=== PATIENT | female | born 1945 | race Caucasian/White ===

== ENCOUNTER 2018-07-23 14:19 | Outpatient (CLI) | payer MEDICARE | END 2018-07-23 14:20 | disposition short-term general hospital (02) | LOC: EMS 14:19 | PROVIDERS: ATTEND Surgery | DX: R07.9 Chest pain, unspecified (principal); R68.84 Jaw pain | CPT/HCPCS: A0425; A0427 ==

== ENCOUNTER 2019-04-07 14:45 | Outpatient (CLI) | payer MEDICARE | END 2019-04-07 14:46 | disposition critical access hospital (66) | LOC: EMS 14:45 | PROVIDERS: ATTEND Surgery | DX: M54.5 Low back pain (principal); W10.9XXA Fall (on) (from) unspecified stairs and steps, initial encounter; Y92.009 Unspecified place in unspecified non-institutional (private) residence as the place of occurrence of the external cause | CPT/HCPCS: A0425; A0429 ==

== ENCOUNTER 2019-04-07 15:27 | Emergency (ER) | payer MEDICARE ==
[2019-04-07] MEDS ORDERED: IBUPROFEN 600 MG TABLET PO STA (15:49)
[2019-04-07] MEDS ORDERED: HYDROcod/ACETAM 5/325 MG TABLET PO STA (15:49)
--- NOTE | 2019-04-07 16:39 | CT Report ---
Reason: fall/pain Procedure Date: 04/07/2019 Accession Number: [id number] / [id number] Procedure: CT - Abdomen/Pelvis WO CPT Code: Final Report FULL RESULT: EXAM: CT ABDOMEN AND PELVIS (CT KUB) EXAM DATE: 04/07/2019 04:17 PM. CLINICAL HISTORY: Fall/pain. Fall onto back. Right low back pain. Right hip pain. COMPARISONS: None. TECHNIQUE: Routine axial helical CT imaging was performed through the abdomen and pelvis without IV contrast. Reconstructions: Coronal and sagittal. In accordance with CT protocol optimization, one or more of the following dose reduction techniques were utilized for this exam: automated exposure control, adjustment of mA and/or KV based on patient size, or use of iterative reconstructive technique. FINDINGS: Lung bases: No acute findings. 4 mm left lower lobe pulmonary nodule. Liver: Unremarkable. Gallbladder: Unremarkable. Bile ducts: Unremarkable. Pancreas: Moderate pancreatic lipomatosis. Spleen: Unremarkable. Adrenals: Unremarkable. 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 No renal calculi. No hydronephrosis or hydroureter. No ureteral calculi. Bowel: No dilated bowel loops are seen. Mild descending and sigmoid colon diverticulosis. No dilated bowel loops are seen. No acute bowel findings are seen. Medially located cecum. The appendix is seen, and there is no evidence for acute appendicitis. No free fluid or free air. Pelvis: The bladder and remaining pelvic organs appear unremarkable. Vasculature: No acute findings are seen. L2 and T9 vertebral body osseous hemangiomas. Mild to moderate acute compression fracture at T12 with anterior cortex buckling and the fracture involving the inferior endplate, appears to involve the anterior and middle columns without posterior protrusion of bone. No definite fracture line is seen extending to the posterior cortex. Evaluation is limited without IV contrast. IMPRESSION: 1. Mild to moderate acute compression fracture at T12. See above. No other acute fractures are seen. 2. No evidence for solid organ injury. No free fluid. 3. Small left renal angiomyolipoma. 4. Left lower lobe 4 mm pulmonary nodule. If there is low risk for malignancy, then no followup is warranted. If there is high risk for malignancy, recommend a 1-year follow-up chest CT. 5. Mild left-sided colonic diverticulosis. 6. See above. RADIA
--- NOTE | 2019-04-07 18:16 | ED Physician Documentation ---
History of Present Illness - Stated complaint Stated Complaint: GLF - Chief complaint Chief Complaint: Trauma Ch/Bk - History obtained from History obtained from: Patient - History of Present Illness Timing: Prior to arrival - Additonal information Additional information: Patient states she was coming down the stairs from her attic when she slipped on the last 2 stairs and fell. She states she struck her back and that she has been having pain in the sacral area and in her right flank since. Patient denies being able to urinate on the toilet since, as she states she was incontinent of urine when she landed. Patient states that she did not hit her head or lose consciousness. No neck pain. The patient states that she has not had any rib pain or abdominal pain. She denies any difficulty breathing. She states that she could not get herself up because her back hurt too badly. Patient denies any numbness or tingling in her lower extremities. No other complaints at this time. Review of Systems Ten Systems: 10 systems reviewed and negative Constitutional: reports: Reviewed and negative Eyes: reports: Reviewed and negative Ears: reports: Reviewed and negative Nose: reports: Reviewed and negative Throat: reports: Reviewed and negative Cardiac: reports: Reviewed and negative Respiratory: reports: Reviewed and negative GI: reports: Reviewed and negative : reports: Reviewed and negative Skin: reports: Reviewed and negative Musculoskeletal: reports: Back pain Neurologic: reports: Reviewed and negative Psychiatric: reports: Reviewed and negative Endocrine: reports: Reviewed and negative Immunocompromised: reports: Reviewed and negative PD PAST MEDICAL HISTORY - Past Medical History Past Medical History: No - Present Medications Home Medications: Ambulatory Orders Medication Instructions Recorded Confirmed Hydrocodone/Acetaminophen 1 - 2 each PO Q6H PRN #14 tablet 04/07/19 [Hydrocodon-Acetaminophen 5-325] - Allergies Allergies/Adverse Reactions: Allergies Allergy/AdvReac Type Severity Reaction Status Date / Time No Known Drug Allergies Allergy Verified 04/07/19 15:39 - Social History Does the pt smoke?: No Smoking Status: Never smoker Does the pt drink ETOH?: Yes Does the pt have substance abuse?: No - POLST Patient has POLST: No PD ED PE NORMAL - Vitals Vital signs reviewed: Yes - General General: Alert and oriented X 3, No acute distress, Other (Patient appears uncomfortable with movement.) - HEENT HEENT: PERRL - Neck Neck: Supple, no meningeal sign - Cardiac Cardiac: RRR, No murmur, Strong equal pulses - Respiratory Respiratory: No respiratory distress, Clear bilaterally - Abdomen Abdomen: Soft, Non tender, Non distended - Back Back: No CVA TTP, Other (No tenderness to palpation over the patient's spine at any level. No step-off.) - Derm Derm: Warm and dry - Extremities Extremities: No deformity - Neuro Neuro: Alert and oriented X 3, refuse driver 2-12 intact, No motor deficit, No sensory deficit, Normal speech - Psych Psych: Normal mood, Normal affect Results - Vitals Vitals: Vital Signs - 24 hr 04/07/19 04/07/19 04/07/19 15:35 15:52 18:22 Temperature 36.4 C L 36.8 C Heart Rate 80 81 96 Respiratory 16 16 18 Rate Blood Pressure 107/59 L 103/65 150/70 H O2 Saturation 97 98 96 Oxygen O2 Source Room air - Rads (name of study) CT abdomen and pelvis Radiology: Final report received, Discussed with rads, See rad report (Radiologist impression: 1. Mild to moderate acute compression fracture T12; no other acute fractures are seen.5. Mild left-sided colonic diverticulosis.) PD MEDICAL DECISION MAKING - ED course Complexity details: reviewed old records, reviewed results, re-evaluated patient, considered differential, d/w patient ED course: Patient was treated symptomatically with oral pain medication in the emergency department, and worked up with CT of the abdomen and pelvis without contrast. This did show a compression fracture of her T12 vertebra.The patient was found to be feeling better after receiving Vicodin in the emergency department.I discussed the findings of her CT with her, as well as the expected course of recovery. We have discussed that this is a stable fracture and would not be expected to result in any spinal cord compromise. We have discussed activity limitations at home, as well as the need for keeping moving. I have also discussed with her that a pulmonary nodule was found on her CT scan, and that this should be followed up by her primary care physician with repeat imaging in the next 6 months to year Departure - Departure Disposition: Home, Self Care Clinical Impression: Compression fracture Condition: Fair Instructions: ED Fx Comp Vertebral Prescriptions: Hydrocodone/Acetaminophen [Hydrocodon-Acetaminophen 5-325] 1 - 2 each PO Q6H PRN #14 tablet PRN Reason: pain Comments: Your x-ray showed a compression fracture of your T12 vertebra. This is right in the area that you seem to be feeling pain. Fortunately, a compression fracture is stable, and there is no concern for spinal cord injury.Until this heals, you will most likely have some degree of pain in your back, though it will improve over the next several weeks. Please take the pain medication as needed. Please follow-up with your primary care physician for further management. Discharge Date/Time: 04/07/19 18:40
[2019-04-07 18:22] VITALS: BP 150/70
== END 2019-04-07 18:40 | disposition home or self-care (01) ==
LOC: EDUNIT# → ED 15:27
DX: S22.089A Unspecified fracture of T11-T12 vertebra, initial encounter for closed fracture (principal); W10.8XXA Fall (on) (from) other stairs and steps, initial encounter; Y93.89 Activity, other specified; Y92.008 Other place in unspecified non-institutional (private) residence as the place of occurrence of the external cause; R91.8 Other nonspecific abnormal finding of lung field
CPT/HCPCS: 74176; 99284; A9270

== ENCOUNTER 2019-04-09 16:36 | Emergency (ER) | payer MEDICARE ==
--- NOTE | 2019-04-09 16:59 | ED Physician Documentation ---
PD HPI BACK PAIN - Stated complaint Stated Complaint: ED FOLLOW UP - COMPRESSION FRACTURE - Chief complaint Chief Complaint: Back Pain - History obtained from History obtained from: Patient - History of Present Illness Timing - onset: How many days ago (2) Timing - duration: Days (2) Timing - details: Abrupt onset, Still present Location: Lower Quality: Pain, Sharp, Aching Associated symptoms: No: Fever, Weakness, Numbness, Incontinent of urine Worsened by: Movement, Other (movement of getting up and down is worst, with pain also while standing. Has been in bed mostly the past couple days since injury.) Similar symptoms before: Has not had sx before Recently seen: Emergency Dept (2 days ago after fall backward with Dx of T12 mild endplate compression fracture.) Review of Systems Cardiac: denies: Chest pain / pressure Respiratory: denies: Dyspnea GI: denies: Abdominal Pain, Nausea, Vomiting, Diarrhea Skin: denies: Abrasion (s), Laceration (s) Neurologic: denies: Generalized weakness, Focal weakness, Numbness, Near syncope, Altered mental status, Headache PD PAST MEDICAL HISTORY - Past Medical History Past Medical History: No Neuro: None - Present Medications Home Medications: Ambulatory Orders Medication Instructions Recorded Confirmed Hydrocodone/Acetaminophen 1 - 2 each PO Q6H PRN #14 tablet 04/07/19 [Hydrocodon-Acetaminophen 5-325] Calcitonin [Fortical] 1 sprays MARK DAILY #1 bottle 04/09/19 Docusate Sodium 100 mg PO DAILY #30 capsule 04/09/19 Meloxicam [Mobic] 7.5 mg PO BID PRN #40 tablet 04/09/19 Ondansetron Odt [Zofran] 4 mg TL Q6H PRN #20 tablet 04/09/19 Oxycodone HCl 5 mg PO Q6H PRN #25 tablet 04/09/19 - Allergies Allergies/Adverse Reactions: Allergies Allergy/AdvReac Type Severity Reaction Status Date / Time No Known Drug Allergies Allergy Verified 04/09/19 16:47 - Living Situation Living Situation: reports: With spouse/s.o. Living Arrangement: reports: At home - Social History Does the pt smoke?: No Smoking Status: Never smoker Does the pt drink ETOH?: Yes Does the pt have substance abuse?: No - POLST Patient has POLST: No PD ED PE NORMAL - Vitals Vital signs reviewed: Yes - General General: Alert and oriented X 3, Well developed/nourished, Other (appears in pain for sitting up movement. Rolls to left side easily enough. ) - HEENT HEENT: Atraumatic - Neck Neck: Supple, no meningeal sign, No bony TTP, No adenopathy - Abdomen Abdomen: Soft, Non tender. No: Normal bowel sounds (diminished) - Female Female : Deferred - Rectal Rectal: Deferred - Back Back: No CVA TTP, Other (tender at TL area of back. No sores/rash) - Derm Derm: Normal color, Warm and dry - Neuro Neuro: Alert and oriented X 3, No motor deficit, No sensory deficit, Normal speech, Other (normal knee reflexes. ) Results - Vitals Vitals: Vital Signs - 24 hr 04/09/19 04/09/19 16:47 18:02 Temperature 37 C 37.0 C Heart Rate 77 81 Respiratory 18 16 Rate Blood Pressure 132/77 H 139/67 H O2 Saturation 100 95 Oxygen O2 Source Room air PD MEDICAL DECISION MAKING - ED course Complexity details: reviewed old records, re-evaluated patient (feeling much improved with IM Toradol and 1 mg Dilaudid. Still hurting ROM but able to sit up on her own. Walked to bathroom. ), considered differential (pain not well controlled with hydrocodone Rx. Can try Oxycodone and also NSAIDs, Calcitonin, and add Docusate to avert constipation. ), d/w patient Departure - Departure Disposition: 01 Home, Self Care Clinical Impression: Vertebral compression fracture Qualifiers: Encounter type: subsequent encounter Fracture of vertebra location: thoracic Thoracic vertebra fracture level: T12 Condition: Stable Record reviewed to determine appropriate education?: Yes Instructions: ED Fx Comp Vertebral Follow-Up: KATYA MATA MD [Primary Care Provider] - Prescriptions: Calcitonin [Fortical] 1 sprays MARK DAILY #1 bottle Docusate Sodium 100 mg PO DAILY #30 capsule Meloxicam [Mobic] 7.5 mg PO BID PRN #40 tablet PRN Reason: Pain Ondansetron Odt [Zofran] 4 mg TL Q6H PRN #20 tablet PRN Reason: Nausea / Vomiting Oxycodone HCl 5 mg PO Q6H PRN #25 tablet PRN Reason: Pain Comments: Use your walking sticks to help support your balance and back. Activity and position as most comfortable. Try to be up and around a few times a day to promote good circulation and aeration of the lungs. Purposeful deep breathing several times a day for good aeration of the lungs. Do some foot moving exercises up and down when you are resting in bed several times a day to maintain good blood flow through the calves. Daily stool softener of docusate for the next month to ensure easy bowel movements. Stay well-hydrated. Good high-fiber diet. Use an anti-inflammatory regularly. I wrote for Mobic twice daily for the next 2 to 3 weeks. Take it with food so it does not bother your stomach. Also use Tylenol 500 mg 4 times daily for the next 7-10 days. Use the oxycodone 5 mg tablets 1 to 1-1/2 tablets every 6 hours if needed for pain. Follow-up with your primary care in the next week to see if any medication adjustments are needed and refills. Ondansetron if needed for nausea. Use the calcitonin nasal spray daily for the next month to promote better healing of the compression fracture. Discharge Date/Time: 04/09/19 18:18
[2019-04-09] MEDS ORDERED: ONDANSETRON ODT 4 MG TABLET TL STA (17:14)
[2019-04-09] MEDS ORDERED: HYDROmorphone 2 MG/ML VIAL IM STA (17:14)
[2019-04-09] MEDS ORDERED: oxyCODONE/ACET 5/325 Prepack 4 PO STA (17:14)
[2019-04-09] MEDS ORDERED: KETOROLAC 30 MG/ML VIAL IM STA (17:14)
[2019-04-09 18:03] VITALS: BP 139/67
== END 2019-04-09 18:18 | disposition home or self-care (01) ==
LOC: ED 16:36
DX: S22.089A Unspecified fracture of T11-T12 vertebra, initial encounter for closed fracture (principal); W19.XXXA Unspecified fall, initial encounter
CPT/HCPCS: 96372; 99284; J1170; Q0162

== ENCOUNTER 2020-10-01 13:35 | Emergency (ER) | payer MEDICARE ==
--- NOTE | 2020-10-01 14:09 | XRAY Report ---
PROCEDURE: Chest 1 View X-Ray INDICATIONS: Chest pain TECHNIQUE: One view of the chest was acquired. COMPARISON: None. FINDINGS: Surgical changes and devices: None. Lungs and pleura: No pleural effusions or pneumothorax. Lungs are clear. Mediastinum: Mediastinal contours appear normal. Heart size is normal. Bones and chest wall: No suspicious bony lesions. Overlying soft tissues appear unremarkable. IMPRESSION: No acute cardiopulmonary abnormality. Reviewed by: Angel Duenas MD on 10/01/2020 2:08 PM PDT Approved by: Angel Duenas MD on 10/01/2020 2:08 PM PDT Station ID: [id number]
[2020-10-01 14:16] LABS: BASOPHILS # (AUTO) 0.1 10^3/uL (0.0-0.1); BASOPHILS % (AUTO) 0.6 %; EOSINOPHILS # (AUTO) 0.2 10^3/uL (0.0-0.7); EOSINOPHILS % (AUTO) 1.9 %; HCT - HEMATOCRIT 41.1 % (37.0-47.0); LYMPHOCYTES # (AUTO) 1.6 10^3/uL (1.5-3.5); LYMPHOCYTES % (AUTO) 15.2 %; MEAN CORPUSCULAR HEMOGLOBIN 28.4 pg (27.0-31.0); MEAN CORPUSCULAR HGB CONC 31.6 g/dL (32.0-36.0); MEAN CORPUSCULAR VOLUME 89.7 fL (81.0-99.0); MEAN PLATELET VOLUME 9.1 fL (7.9-10.8); MONOCYTES # (AUTO) 0.6 10^3/uL (0.0-1.0); MONOCYTES % (AUTO) 5.6 %; NEUTROPHILS # (AUTO) 8.1 10^3/uL (1.5-6.6); NEUTROPHILS % (AUTO) 76.2 %; PLT - PLATELET COUNT 313 10^3/uL (130-450); RED BLOOD COUNT 4.58 10^6/uL (4.20-5.40); RED CELL DISTRIBUTION WIDTH 13.9 % (12.0-15.0); WHITE BLOOD COUNT 10.6 x10^3/uL (4.8-10.8)
--- NOTE | 2020-10-01 14:30 | ED Physician Documentation ---
PD HPI DYSPNEA - Stated complaint Stated Complaint: HIGH BP - Chief complaint Chief Complaint: Cardiac - History obtained from History obtained from: Patient - History of Present Illness Timing - onset: Yesterday Timing - onset during: Rest Timing - duration: Days (2) Timing - details: Gradual onset, Still present, Waxing and waning Inciting event(s): No: Out of meds, URI, Immobilization/travel (she had left knee replacement 12 days ago, but was having less activity only for few days. She states she is up and ambulatory and getting daily PT. Has not felt ill like cough nor URI.) Improved by: No: Rest Worsened by: Exertion. No: Coughing Associated symptoms: Chest pain / discomfort (tightness without sharp/pleuritic pains.), Unilateral edema (left knee and lower leg s/p knee surgery.). No: Fever, Cough, Wheezing, Palpitations Similar symptoms before: Has not had sx before Recently seen: Surgery (12 days ago had knee replacement without complications.) Review of Systems Constitutional: denies: Fever, Chills Nose: denies: Rhinorrhea / runny nose, Congestion Throat: denies: Sore throat Cardiac: reports: Chest pain / pressure. denies: Palpitations Respiratory: reports: Dyspnea. denies: Cough, Wheezing GI: denies: Abdominal Pain, Nausea, Vomiting Skin: denies: Rash, Lesions PD PAST MEDICAL HISTORY - Past Medical History Cardiovascular: None Respiratory: None Neuro: None - Present Medications Home Medications: Ambulatory Orders Medication Instructions Recorded Confirmed Hydrocodone/Acetaminophen 1 - 2 each PO Q6H PRN #14 tablet 04/07/19 [Hydrocodon-Acetaminophen 5-325] Calcitonin [Fortical] 1 sprays MARK DAILY #1 bottle 04/09/19 Docusate Sodium 100 mg PO DAILY #30 capsule 04/09/19 Meloxicam [Mobic] 7.5 mg PO BID PRN #40 tablet 04/09/19 Ondansetron Odt [Zofran] 4 mg TL Q6H PRN #20 tablet 04/09/19 Oxycodone HCl 5 mg PO Q6H PRN #25 tablet 04/09/19 dexAMETHasone [Decadron] 4 mg PO DAILY #5 tablet 10/01/20 - Allergies Allergies/Adverse Reactions: Allergies Allergy/AdvReac Type Severity Reaction Status Date / Time No Known Drug Allergies Allergy Verified 10/01/20 13:54 - Social History Does the pt smoke?: No Smoking Status: Never smoker Does the pt drink ETOH?: Yes Does the pt have substance abuse?: No - POLST Patient has POLST: No PD ED PE NORMAL - Vitals Vital signs reviewed: Yes - General General: Alert and oriented X 3, No acute distress, Well developed/nourished - Neck Neck: Supple, no meningeal sign, No adenopathy - Cardiac Cardiac: RRR, No murmur - Respiratory Respiratory: Clear bilaterally - Abdomen Abdomen: Soft, Non tender - Derm Derm: Normal color, Warm and dry - Extremities Extremities: Other (left knee with healing wound and johnson without signs of infection. There is general edema and bruising anterior knee, infrapatellar and upper lower leg. General nonpitting edema in lower leg and ankle. No calf tenderness. ) - Neuro Neuro: Alert and oriented X 3, No motor deficit, No sensory deficit, Normal speech Results - Vitals Vitals: Vital Signs - 24 hr 10/01/20 10/01/20 10/01/20 13:41 16:03 16:08 Temperature 36.8 C Heart Rate 89 90 92 Respiratory 18 16 16 Rate Blood Pressure 181/101 H 161/84 H O2 Saturation 97 98 Oxygen O2 Source Room air - EKG (time done) 13:53 Rate: Rate (enter#) (93) Rhythm: NSR Mathews: Normal Intervals: Normal VA QRS: Normal Ischemia: Normal ST segments. No: ST elevation c/w ischemia, ST depression - Labs Labs: Laboratory Tests 10/01/20 10/01/20 10/01/20 14:11 14:11 14:11 WBC 10.6 RBC 4.58 Hgb 13.0 Hct 41.1 MCV 89.7 MCH 28.4 MCHC 31.6 L RDW 13.9 Plt Count 313 MPV 9.1 Neut # (Auto) 8.1 H Lymph # (Auto) 1.6 [place] # (Auto) 0.6 Eos # (Auto) 0.2 Baso # (Auto) 0.1 Absolute Nucleated RBC 0.00 Nucleated RBC % 0.0 D-Dimer Sodium 139 Potassium 3.9 Chloride 105 Carbon Dioxide 26 Anion Gap 8.0 BUN 22 H Creatinine 0.7 Estimated GFR (MDRD) 82 L Glucose 102 H Calcium 9.5 Total Bilirubin 0.9 AST 28 ALT 41 Alkaline Phosphatase 71 Troponin I High Sens 5.6 B-Natriuretic Peptide Total Protein 7.6 Albumin 4.4 Globulin 3.2 Albumin/Globulin Ratio 1.4 Lipase 26 10/01/20 10/01/20 14:11 14:11 WBC RBC Hgb Hct MCV MCH MCHC RDW Plt Count MPV Neut # (Auto) Lymph # (Auto) [place] # (Auto) Eos # (Auto) Baso # (Auto) Absolute Nucleated RBC Nucleated RBC % D-Dimer > 1050.0 H Sodium Potassium Chloride Carbon Dioxide Anion Gap BUN Creatinine Estimated GFR (MDRD) Glucose Calcium Total Bilirubin AST ALT Alkaline Phosphatase Troponin I High Sens B-Natriuretic Peptide 97 Total Protein Albumin Globulin Albumin/Globulin Ratio Lipase - Rads (name of study) chest xray Radiology: Prelim report reviewed (no acute process), See rad report chest angio Radiology: Prelim report reviewed (no PE. No pneumonia. ), See rad report PD MEDICAL DECISION MAKING - ED course Complexity details: reviewed results (d-dimer elevated socould not exclude VTE. Chest angio done and no PEs. ), considered differential (BP elevated but she s tates normal good BP at 120-130 systolic. So did not want to decrease it medically in ER. Likely reactive. Will eval the dyspnea with CXR, ECG, labs.), d/w patient Departure - Departure Disposition: 01 Home, Self Care Clinical Impression: Dyspnea Qualifiers: Dyspnea type: shortness of breath Qualified Code(s): R06.02 - Shortness of breath Status post knee replacement Qualifiers: Laterality: left Qualified Code(s): Z96.652 - Presence of left artificial knee joint Clinical Impression: (Ruled Out): Pulmonary embolus, Pulmonary edema Condition: Stable Record reviewed to determine appropriate education?: Yes Instructions: ED Dyspnea Shortness of Breath Follow-Up: KATYA MATA MD [Primary Care Provider] - Prescriptions: dexAMETHasone [Decadron] 4 mg PO DAILY #5 tablet Comments: Your EKG, chest x-ray, chest CT scan, blood tests have shown that you do not have any blood clots, pneumonia, heart failure, heart attack, collapsed lung as a cause of your shortness of breath. I presume you may have some inflammation to the airways or a flareup of your asthma. As such I would suggest having you use your albuterol inhaler 2 to 3 puffs 4 times a day for the next several days to week. You could also add Decadron steroid daily for several days for helping with inflammation of the airways. These would be common treatments for an asthma flareup. Recheck if not improved well over the next several days and return if worsening or other symptoms develop. You have a Covid test pending. You need to self quarantine until the result is done and negative. Do not leave your house. Do not get near anybody. The results should be done in 48 to 72 hours, but sometimes longer. We will call with a positive result, the fastest way to get a negative result for confirmation though is to go to the hospital website at [email or web address], click on the my [facility] tab and sign up for the patient portal. If any friends or family get sick and would like to have a Covid test done, but do not have signs or symptoms that would necessitate being hospitalized, we encourage testing through our coronavirus swabbing station, call [phone] to schedule an appointment. Your blood pressure was elevated today but is starting to come down. You stated your blood pressure is typically normal. General guidelines this typically state not to treat isolated elevated blood pressure. I would see how it does over the next several days to week to see if it is trend of being elevated or just isolated today. Discharge Date/Time: 10/01/20 16:40
[2020-10-01 14:33] LABS: ALBUMIN 4.4 g/dL (3.2-5.5); ALBUMIN/GLOBULIN RATIO 1.4 (1.0-2.2); BILIRUBIN,TOTAL 0.9 mg/dL (0.2-1.0); CALCIUM 9.5 mg/dL (8.5-10.3); CREATININE 0.7 mg/dL (0.4-1.0); POTASSIUM 3.9 mmol/L (3.5-5.0); TOTAL PROTEIN 7.6 g/dL (6.7-8.2)
[2020-10-01] MEDS ORDERED: IOPAMIDOL-300 50 ML VIAL ONE (14:56)
[2020-10-01] MEDS ORDERED: ALBUTEROL NEB 2.5 MG/3 ML INH STA (15:44)
--- NOTE | 2020-10-01 15:58 | CT Report ---
PROCEDURE: ANGIO CHEST W/WO INDICATIONS: post op knee surgery; dyspnea, elevated D-dimer CONTRAST: IV CONTRAST: Isovue 300 ml: 80 PO CONTRAST: *NO PO CONTRAST TECHNIQUE: After the administration of intravenous contrast, images were acquired from the pulmonary apices to t he posterior costophrenic angles. 3-dimensional maximum intensity projection (MIP) coronal and sagit june reformats were then acquired through the thorax. For radiation dose reduction, the following was used: automated exposure control, adjustment of mA and/or kV according to patient size. COMPARISON: CT abdomen/pelvis 04/07/2019. FINDINGS: Image quality: Respiratory motion mildly compromises evaluation of the distal subsegmental pulmonary arteries. Pulmonary arteries: Pulmonary arteries are normal in size, and demonstrate no intraluminal filling d efects to suggest central pulmonary embolism. Lungs and pleura: Lungs are clear. No pleural effusions or pneumothorax. Central and peripheral ai rways are patent. Mediastinum: Heart size is normal. A trace pericardial effusion is likely physiologic. No mediastin al or hilar adenopathy. Thoracic aorta is normal in caliber and enhancement. Mild to moderate aortic atherosclerotic calcifications. Esophagus is normal in caliber, without hiatal hernia. Bones and chest wall: Bilateral retroglandular saline breast implants are present. No suspicious bon y lesions. Severe T12 compression fracture is seen without further loss of vertebral body height when compared to the prior CT from 04/07/2019. Generalized osteopenia. No new compression fracture. No axi llary or supraclavicular adenopathy. A calcified right inferior thyroid nodule is incompletely image d. Abdomen: A tiny calcified gallstone is seen in the gallbladder neck. A tiny fat-containing lesion in the left kidney may represent an angiomyolipoma. Visualized upper abdominal solid organs otherwise a ppear normal in the early arterial phase of enhancement. IMPRESSION: 1. No acute pulmonary embolism. However, there is mild respiratory motion and a small subsegmental p ulmonary embolus could be missed. 2. Severe compression fracture of the T12 vertebral body with further loss of height when compared t o the CT from 04/07/2019. Reviewed by: Angel Duenas MD on 10/01/2020 3:57 PM PDT Approved by: Angel Duenas MD on 10/01/2020 3:57 PM PDT Station ID: [id number]
[2020-10-01 16:08] VITALS: BP 161/84
[2020-10-01] MEDS ORDERED: DEXAMETHASONE 10 MG/ML VIAL IVP STA (16:10)
[2020-10-01] MEDS ORDERED: IOPAMIDOL-300 50 ML VIAL IVP ONE (19:09)
== END 2020-10-01 16:40 | disposition home or self-care (01) ==
LOC: ED 13:35
DX: R06.02 Shortness of breath (principal); J45.909 Unspecified asthma, uncomplicated; Z20.822 Contact with and (suspected) exposure to COVID-19; R07.89 Other chest pain; R60.0 Localized edema; Z96.652 Presence of left artificial knee joint; R03.0 Elevated blood-pressure reading, without diagnosis of hypertension
CPT/HCPCS: 36415; 71045; 71275; 80053; 83690; 83880; 84484; 85025; 85379; 93005; 94640; 99284; Q9967; U0004

== ENCOUNTER 2021-01-14 13:35 | Outpatient (CLI) | payer MEDICARE | END 2021-01-14 23:59 | disposition home or self-care (01) | LOC: LAB.S 13:35 | PROVIDERS: ATTEND Emergency Medicine | DX: R05.8 Other specified cough (principal); J06.9 Acute upper respiratory infection, unspecified; Z20.822 Contact with and (suspected) exposure to COVID-19 ==

== ENCOUNTER 2021-11-24 23:35 | Outpatient (CLI) | payer MEDICARE | END 2021-11-24 23:36 | disposition EMS.NT | LOC: EMS 23:35 | DX: Z03.89 Encounter for observation for other suspected diseases and conditions ruled out (principal) ==

== ENCOUNTER 2021-11-28 10:23 | Outpatient (CLI) | payer MEDICARE ==
[2021-11-28 14:30] LABS: ALBUMIN 4.2 g/dL (3.2-5.5); ALBUMIN/GLOBULIN RATIO 1.4 (1.0-2.2); CALCIUM 9.5 mg/dL (8.5-10.3); CREATININE 0.8 mg/dL (0.4-1.0); POTASSIUM 4.3 mmol/L (3.5-5.0); TOTAL PROTEIN 7.2 g/dL (6.7-8.2)
== END 2021-11-28 10:24 | disposition home or self-care (01) ==
LOC: LAB.S 10:23
PROVIDERS: ATTEND Physician Assistant Medical
DX: I10 Essential (primary) hypertension (principal)
CPT/HCPCS: 36415; 80053

== ENCOUNTER 2022-09-08 10:56 | Emergency (ER) | payer MEDICARE ==
[2022-09-08 14:43] VITALS: BP 172/89
[2022-09-08 15:17] LABS: BASOPHILS # (AUTO) 0.1 10^3/uL (0.0-0.1); BASOPHILS % (AUTO) 0.7 %; EOSINOPHILS # (AUTO) 0.2 10^3/uL (0.0-0.7); EOSINOPHILS % (AUTO) 2.4 %; HCT - HEMATOCRIT 46.1 % (37.0-47.0); HGB - HEMOGLOBIN 14.7 g/dL (12.0-16.0); LYMPHOCYTES # (AUTO) 1.9 10^3/uL (1.5-3.5); LYMPHOCYTES % (AUTO) 28.3 %; MEAN CORPUSCULAR HEMOGLOBIN 28.1 pg (27.0-31.0); MEAN CORPUSCULAR HGB CONC 31.9 g/dL (32.0-36.0); MEAN PLATELET VOLUME 9.5 fL (7.9-10.8); MONOCYTES # (AUTO) 0.5 10^3/uL (0.0-1.0); MONOCYTES % (AUTO) 7.8 %; NEUTROPHILS % (AUTO) 60.5 %; PLT - PLATELET COUNT 204 10^3/uL (130-450); RED BLOOD COUNT 5.24 10^6/uL (4.20-5.40); RED CELL DISTRIBUTION WIDTH 13.5 % (12.0-15.0); WHITE BLOOD COUNT 6.7 x10^3/uL (4.8-10.8)
[2022-09-08 15:32] LABS: ALBUMIN 4.2 g/dL (3.2-5.5); ALBUMIN/GLOBULIN RATIO 1.4 (1.0-2.2); BILIRUBIN,TOTAL 0.9 mg/dL (0.2-1.0); CALCIUM 9.1 mg/dL (8.5-10.3); CREATININE 0.8 mg/dL (0.4-1.0); POTASSIUM 4.1 mmol/L (3.5-5.0); TOTAL PROTEIN 7.3 g/dL (6.7-8.2)
--- NOTE | 2022-09-08 15:33 | XRAY Report ---
PROCEDURE: Chest 1 View X-Ray INDICATIONS: Chest Pain TECHNIQUE: One view of the chest was acquired. COMPARISON: 09/16/2021 FINDINGS: Surgical changes and devices: None. Lungs and pleura: No pleural effusions or pneumothorax. Lungs are clear. Mediastinum: Mediastinal contours appear normal. Heart size is normal. Bones and chest wall: No suspicious bony lesions. Overlying soft tissues appear unremarkable. IMPRESSION: No acute cardiopulmonary process. Reviewed by: Maria Dolores Mckeon MD on 09/08/2022 3:32 PM PDT Approved by: Maria Dolores Mckeon MD on 09/08/2022 3:32 PM PDT Station ID: [id number]
--- NOTE | 2022-09-08 15:36 | ED Physician Documentation ---
History of Present Illness - Stated complaint Stated Complaint: DIZZINESS,BODY ACHE,NAUSEA - Chief complaint Chief Complaint: General - Additonal information Additional information: 77-year-old female presents emergency department for evaluation of vertigo. Reports that 2 mornings ago she sat up in bed and had immediate sensation of the room spinning with some nausea. She described it is very intense lasting about 15 seconds. Since then she has had very brief and much more mild dizziness especially with turning her head to the left. No chest pain or shortness of air. She feels that her speech is off and that her thoughts are not coherent. On presentation she is alert very well-appearing. NIHSS is 0. She has normal finger-nose. Review of Systems Constitutional: denies: Fever Throat: reports: Reviewed and negative Cardiac: reports: Reviewed and negative Respiratory: reports: Reviewed and negative GI: reports: Reviewed and negative Neurologic: denies: Generalized weakness, Focal weakness, Numbness, Difficulty speaking, Confused, Headache, Head injury PD PAST MEDICAL HISTORY - Past Medical History Past Medical History: Yes Cardiovascular: None Respiratory: None Neuro: None - Present Medications Home Medications: Ambulatory Orders Medication Instructions Recorded Confirmed Hydrocodone/Acetaminophen 1 - 2 each PO Q6H PRN #14 tablet 04/07/19 [Hydrocodon-Acetaminophen 5-325] Calcitonin [Fortical] 1 sprays MARK DAILY #1 bottle 04/09/19 Docusate Sodium 100 mg PO DAILY #30 capsule 04/09/19 Meloxicam [Mobic] 7.5 mg PO BID PRN #40 tablet 04/09/19 Ondansetron Odt [Zofran] 4 mg TL Q6H PRN #20 tablet 04/09/19 Oxycodone HCl 5 mg PO Q6H PRN #25 tablet 04/09/19 dexAMETHasone [Decadron] 4 mg PO DAILY #5 tablet 10/01/20 - Allergies Allergies/Adverse Reactions: Allergies Allergy/AdvReac Type Severity Reaction Status Date / Time No Known Drug Allergies Allergy Verified 10/01/20 13:54 - Social History Does the pt smoke?: No Smoking Status: Never smoker Does the pt drink ETOH?: Yes Does the pt have substance abuse?: No - POLST Patient has POLST: No PD ED PE NORMAL - General General: Alert and oriented X 3, No acute distress - HEENT HEENT: PERRL, Other (Mild nystagmus elicited with extreme left lateral gaze deviation. Mild nystagmus lasting 15 seconds elicited when laying on left side head turned) - Neck Neck: Supple, no meningeal sign - Cardiac Cardiac: RRR, No murmur - Respiratory Respiratory: No respiratory distress - Abdomen Abdomen: Normal bowel sounds, Soft Results - Vitals Vitals: Vital Signs - 24 hr 09/08/22 09/08/22 11:07 14:37 Temperature 36.7 C Heart Rate 81 88 Respiratory 18 16 Rate Blood Pressure 192/96 H 172/89 H O2 Saturation 95 97 Oxygen O2 Source Room air - EKG (time done) 1103 EKG releavant findings:: EKG personally interpreted by author of this note. Relevant findings are: Rate: Rate (enter#) (89) Rhythm: NSR, Other (paired PVC) [place]: Normal Intervals: Normal [place] QRS: Normal Ischemia: Normal ST segments Compare to prior EKG: Old EKG unavailable Computer interpretation: Agree with computer - Labs Labs: Laboratory Tests 09/08/22 09/08/22 09/08/22 15:12 15:12 15:12 WBC 6.7 RBC 5.24 Hgb 14.7 Hct 46.1 MCV 88.0 MCH 28.1 MCHC 31.9 L RDW 13.5 Plt Count 204 MPV 9.5 Neut # (Auto) 4.0 Lymph # (Auto) 1.9 Crisp # (Auto) 0.5 Eos # (Auto) 0.2 Baso # (Auto) 0.1 Absolute Nucleated RBC 0.00 Nucleated RBC % 0.0 Sodium 137 Potassium 4.1 Chloride 104 Carbon Dioxide 28 Anion Gap 5.0 L BUN 16 Creatinine 0.8 Estimated GFR (MDRD) 70 L Glucose 91 Calcium 9.1 Total Bilirubin 0.9 AST 19 ALT 23 Alkaline Phosphatase 95 Troponin I High Sens 2.8 Total Protein 7.3 Albumin 4.2 Globulin 3.1 Albumin/Globulin Ratio 1.4 Lipase 30 - Rads (name of study) CT head Relevant Findings:: Final report received (No imaging explanation is found the patient's presenting symptoms) PD Medical Decision Making - ED course Complexity details: reviewed results, re-evaluated patient, d/w patient ED course: 77-year-old female presents emergency department for evaluation of hypertension and vertigo. Reports that her symptoms began 3 mornings ago when she woke up and sat up and felt an intense sensation of the room spinning that lasted about 15 seconds. Was associated with intense nausea but then dissipated. Since then occasionally when she turns her head she has a subtle sensation of being as though the room is spinning and some slight nausea. She has been checking her blood pressures at home and found that they are higher than they typically are. She has no chest pain or shortness of air. On presentation she has no focal neurodeficits her NIHSS is 0. We were able to reproduce the dizziness when turning her head to the left during a Glendo-Hallpike. History and exam was most consistent with a peripheral vertigo. On exam no evidence of acute otitis media or ear infusion. However patient feels quite strongly that her speech is not fluid and she has a headache and as such we performed a CT of the head which was unremarkable as interpreted by the radiologist. An EKG is interpreted by myself showed no acute ischemic findings. CBC, electrolytes and troponin were also negative. Clinically patient does not present as having ACS or CVA or even a TIA. In the emergency department I did give her a single dose of meclizine which she felt improved the nausea. On reevaluation she was feeling better and will be discharged home to follow closely with her primary care doctor whom she has an appointment with on Thursday. She is advised meclizine [id number] and the Gregoria maneuver. The usual emergent return precautions were discussed for worsening symptoms. Departure - Departure Disposition: 01 Home, Self Care Clinical Impression: Peripheral vertigo involving left ear Condition: Stable Record reviewed to determine appropriate education?: Yes Instructions: Vertigo Paroxysmal Positional Comments: You are seen today in the emergency department for vertigo and nausea as well as concerns of elevated blood pressure. Your labs today in the emergency department including a CBC, chemistries and troponin were all negative. Your EKG did not show signs of ischemia or heart attack. The CT of your head was normal. As discussed at the bedside your dizziness is most consistent with a peripheral etiology. I recommend that you practice the Gregoria maneuver at home. You can use drama mean also known as meclizine once or twice daily to help with the nausea and the vertigo. Typically these types of symptoms are self-limiting and will get better with their own natural course. Please discuss this ED visit when you see your primary care doctor on Wednesday. Return to the ER if you find that you are having new or worsening symptoms. Forms: PCP List NIHSS - Time Time: 15:25 - Level of Consciousness Level of consciousness: (0) Alert, Keenly responsive LOC Questions: (0) Answers both Q's correct LOC Commands: (0) Performs both correctly - Gaze Best Gaze: (0) Normal - Visual Visual: (0) No loss - Facial Palsy Facial Palsy: (0) Normal, symmetrical movement - Motor Arms (both separate) Motor Arm (right): (0) No drift Motor Arm (left): (0) No drift - Motor Legs (both separate) Motor Leg (right): (0) No drift Motor Leg (left): (0) No drift - Limb Ataxia Limb Ataxia: (0) Absent - Sensory Sensory: (0) Normal - Best Language Best Language: (0) No aphasia - Dysarthria Dysarthria: (0) Normal - Extinction and Inattention (formally neg Extinction and inattention: (0) No abnormality - Total Score/Results Total Score/Result: 0
[2022-09-08] MEDS ORDERED: MECLIZINE 12.5 MG TABLET PO STA (15:38)
--- NOTE | 2022-09-08 17:25 | CT Report ---
PROCEDURE: HEAD WO INDICATIONS: dizzy TECHNIQUE: Noncontrast 4.5 mm thick angled axial sections acquired from the foramen magnum to the vertex. For r adiation dose reduction, the following was used: automated exposure control, adjustment of mA and/or kV according to patient size. COMPARISON: Correlation is made with the accompanying chest radiograph. FINDINGS: Image quality: Excellent. CSF spaces: Basal cisterns are patent. No extra-axial fluid collections. Ventricles are normal in size and shape. Brain: No midline shift. No intracranial masses or hemorrhage. Saunders-white matter interface is norm al. Skull and face: Calvarium and visualized facial bones are intact, without suspicious lesions. Sinuses: Visualized sinuses and mastoids are clear. IMPRESSION: No imaging explanation is found for the patient's presenting symptoms. If it would be helpful for clinical management decision making, please consider a dedicated brain MRI (IAC protocol, without and with contrast) for further evaluation (assuming that there is no contra indication). Reviewed by: Eddie Barker MD on 09/08/2022 4:23 PM [facility] Approved by: Eddie Barker MD on 09/08/2022 4:23 PM [facility] Station ID: [id number]
== END 2022-09-08 18:14 | disposition home or self-care (01) ==
LOC: ED 10:56
DX: H81.312 Aural vertigo, left ear (principal); R03.0 Elevated blood-pressure reading, without diagnosis of hypertension
CPT/HCPCS: 36415; 70450; 71045; 80053; 83690; 84484; 85025; 93005; 99284; A9270

== ENCOUNTER 2022-09-29 12:21 | Emergency (ER) | payer MEDICARE ==
[2022-09-29 12:58] LABS: BASOPHILS % (AUTO) 0.4 %; EOSINOPHILS # (AUTO) 0.1 10^3/uL (0.0-0.7); EOSINOPHILS % (AUTO) 1.2 %; HCT - HEMATOCRIT 44.9 % (37.0-47.0); HGB - HEMOGLOBIN 14.3 g/dL (12.0-16.0); LYMPHOCYTES # (AUTO) 1.4 10^3/uL (1.5-3.5); MEAN CORPUSCULAR HEMOGLOBIN 28.1 pg (27.0-31.0); MEAN CORPUSCULAR HGB CONC 31.8 g/dL (32.0-36.0); MEAN CORPUSCULAR VOLUME 88.2 fL (81.0-99.0); MONOCYTES # (AUTO) 0.7 10^3/uL (0.0-1.0); MONOCYTES % (AUTO) 6.3 %; NEUTROPHILS % (AUTO) 79.7 %; PLT - PLATELET COUNT 189 10^3/uL (130-450); RED BLOOD COUNT 5.09 10^6/uL (4.20-5.40); RED CELL DISTRIBUTION WIDTH 13.3 % (12.0-15.0); WHITE BLOOD COUNT 11.3 x10^3/uL (4.8-10.8)
--- OUTSIDE RECORDS SUMMARY | 2022-09-29 13:03 | EXTERNAL MEDICAL SUMMARY RPT | Continuity of Care Document ---
Author Name Unknown Address [address] [place] [address] Phone Organization [facility] Address [address] [place] [address] Phone Care Team Providers Care Manager Database Administration Name Role Phone Unavailable Unavailable Unavailable Radha Coloring Room Man-C, Elodia Unavailable Unavailable Chapin Rn, Cayla Unavailable Unavailable Strempel Patient Registrar Ii, Veronique Unavailab le Unavailable Medications date description facility 2022-08-27 00:00 estradiol [facility] 2022-08-28 00:00 estradiol [facility] 2022-08-29 00:00 estradiol [facility] 2022-08-27 00:00 fluoxetine [facility] 2022-08-28 00:00 fluoxetine [facility] 2022-08-29 00:00 fluoxetine [facility] 2022-08-27 00:00 meloxicam [facility] 2022-08-28 00:00 meloxicam [facility] 2022-08-29 00:00 meloxicam [facility] 2022-08-27 00:00 omeprazole [facility] 2022-08-28 00:00 omeprazole [facility] 2022-08-29 00:00 omeprazole [facility] 2022-08-27 00:00 estradiol [facility] 2022-08-28 00:00 estradiol [facility] 2022-08-29 00:00 estradiol [facility] 2022-08-27 00:00 estradiol [facility] 2022-08-28 00:00 estradiol [facility] 2022-08-29 00:00 estradiol [facility] 2022-08-27 00:00 fluoxetine [facility] 2022-08-28 00:00 fluoxetine [facility] 2022-08-29 00:00 fluoxetine [facility] 2022-08-27 00:00 [facility]erol sulfate [facility] 2022-08-28 00:00 albuterol sulfate [facility] 2022-08-29 00:00 albuterol sulfate [facility] 2022-08-27 00:00 albuterol sulfate [facility] 2022-08-28 00:00 albuterol sulfate [facility] 2022-08-29 00:00 albuterol sulfate [facility] 2022-08-27 00:00 omeprazole [facility] 2022-08-28 00:00 omeprazole [facility] 2022-08-29 00:00 omeprazole [facility] 2022-08-27 00:00 meloxicam [facility] 2022-08-28 00:00 meloxicam [facility] 2022-08-29 00:00 meloxicam [facility] 2022-08-27 00:00 fluoxetine [facility] 2022-08-28 00:00 fluoxetine [facility] 2022-08-29 00:00 fluoxetine [facility] 2022-08-27 00:00 estradiol [facility] 2022-08-28 00:00 estradiol [facility] 2022-08-29 00:00 estradiol [facility] 2022-08-27 00:00 fluoxetine [facility] 2022-08-28 00:00 fluoxetine [facility] 2022-08-29 00:00 fluoxetine [facility] 2022-08-27 00:00 omeprazole [facility] 2022-08-28 00:00 omeprazole [facility] [place] 2022-08-29 00:00 omeprazole [facility] [place] 2022-08-27 00:00 omeprazole [facility] [place] 2022-08-28 00:00 omeprazole [facility] [place] 2022-08-29 00:00 omeprazole [facility] [place] 2022-08-27 00:00 meloxicam [facility] [place] 2022-08-28 00:00 meloxicam [facility] [place] 2022-08-29 00:00 meloxicam [facility] [place] 2022-08-27 00:00 albuterol sulfate [facility] 2022-08-28 00:00 albuterol sulfate [facility] 2022-08-29 00:00 albuterol sulfate [facility] 2022-08-27 00:00 meloxicam [facility] [place] 2022-08-28 00:00 meloxicam [facility] 2022-08-29 00:00 meloxicam [facility] 2022-08-27 00:00 albuterol sulfate [facility] 2022-08-28 00:00 albuterol sulfate [facility] 2022-08-29 00:00 albuterol sulfate [facility] Problems date description facility 2022-08-27 00:00 Rib pain [facility] 2022-08-27 00:00 Rib pain [facility] 2022-08-27 00:00 Rib pain [facility] 2022-08-27 00:00 Unspecified chest pain [facility] 2022-08-27 00:00 Unspecified chest pain [facility] 2022-08-27 00:00 Unspecified chest pain [facility] 2022-08-27 00:00 Abdominal pain, righ t upper quadrant [facility] 2022-08-27 00:00 Abdominal pain, righ t upper quadrant [facility] 2022-08-27 00:00 Pleurodynia [facility] 2022-08-27 00:00 Pleurodynia [facility] 2022-08-27 00:00 Pleurodynia [facility] 2022-08-27 00:00 Right upper quadrant pain [facility] 2022-08-27 00:00 Right upper quadrant pain [facility] [place] Procedures date description facility 2022-08-27 00:00 Visit Code Hold [facility] 2022-08-27 00:00 Visit Code Hold [facility] 2022-08-27 00:00 Visit Code Hold [facility] [place] Results/Labs test date facility value unit notes Social History date description facility 2022-08-27 00:00 Never smoker [facility] 2022-08-27 00:00 Never smoker [facility] [place] Vital Signs date measurement value units 2022-08-27 00:00 BMI 36.43 kg/m2 2022-08-27 00:00 BP_diastolic 92 mmHg 2022-08-27 00:00 BP_systolic 153 mmHg 2022-08-27 00:00 heart_rate 79 /min 2022-08-27 00:00 height_metric 166.37 cm 2022-08-27 00:00 height_standard 65.5 in 2022-08-27 00:00 respiration_rate 17 /min 2022-08-27 00:00 temperature_metric 36.56 C 2022-08-27 00:00 temperature_standard 97.8 F 2022-08-27 00:00 weight_metric 100.47 kg 2022-08-27 00:00 weight_standard 221.5 lb
[2022-09-29 13:11] LABS: ALBUMIN/GLOBULIN RATIO 1.5 (1.0-2.2); BILIRUBIN,TOTAL 0.6 mg/dL (0.2-1.0); CALCIUM 9.7 mg/dL (8.5-10.3); CREATININE 0.8 mg/dL (0.6-1.3); POTASSIUM 4.2 mmol/L (3.5-4.5); TOTAL PROTEIN 6.6 g/dL (6.4-8.9)
[2022-09-29 14:15] LABS: INR 1.1 (0.8-1.2); PT - PROTHROMBIN TIME 12.4 secs (9.9-12.6)
--- NOTE | 2022-09-29 14:41 | ED Physician Documentation ---
PD HPI ABD PAIN - Stated complaint Stated Complaint: - Chief complaint Chief Complaint: Abd Pain - History obtained from History obtained from: Patient - Additional information Additional information: Patient is a 77-year-old female presenting for evaluation of lower abdominal cramping and blood noted in her stool since this morning. Patient reports waking up in the middle night with lower abdominal cramping and feeling like she was can have diarrhea. She reports going to the bathroom several times but is unsure of what her stool color look like. This morning she went and noticed that there was red blood with clots which is happened twice. She has had prior colonoscopies without any issue. She does not take a blood thinner. No upper abdominal pain. No nausea or vomiting. She denies feeling dizzy or lightheaded or prior history of similar symptoms. Review of Systems Constitutional: denies: Fever Cardiac: denies: Chest pain / pressure Respiratory: denies: Dyspnea GI: reports: Abdominal Pain, Bloody / black stool. denies: Vomiting : denies: Dysuria, Hematuria Neurologic: denies: Headache PD PAST MEDICAL HISTORY - Past Medical History Cardiovascular: None Respiratory: None Neuro: None - Present Medications Home Medications: Ambulatory Orders Medication Instructions Recorded Confirmed Hydrocodone/Acetaminophen 1 - 2 each PO Q6H PRN #14 tablet 04/07/19 [Hydrocodon-Acetaminophen 5-325] Calcitonin [Fortical] 1 sprays MARK DAILY #1 bottle 04/09/19 Docusate Sodium 100 mg PO DAILY #30 capsule 04/09/19 Meloxicam [Mobic] 7.5 mg PO BID PRN #40 tablet 04/09/19 Ondansetron Odt [Zofran] 4 mg TL Q6H PRN #20 tablet 04/09/19 Oxycodone HCl 5 mg PO Q6H PRN #25 tablet 04/09/19 dexAMETHasone [Decadron] 4 mg PO DAILY #5 tablet 10/01/20 Amox/Clav 875/125 [Augmentin] 1 each PO Q12H #20 tablet 09/29/22 - Allergies Allergies/Adverse Reactions: Allergies Allergy/AdvReac Type Severity Reaction Status Date / Time No Known Drug Allergies Allergy Verified 09/29/22 12:36 - Social History Does the pt smoke?: No Smoking Status: Never smoker Does the pt drink ETOH?: Yes Does the pt have substance abuse?: No - POLST Patient has POLST: No PD ED PE NORMAL - General General: Alert and oriented X 3, No acute distress, Well developed/nourished - HEENT HEENT: Atraumatic - Neck Neck: Supple, no meningeal sign - Cardiac Cardiac: RRR, No murmur - Respiratory Respiratory: No respiratory distress, Clear bilaterally - Abdomen Abdomen: Normal bowel sounds, Soft, Non distended, Other (Right and left lower quadrant tenderness to palpation, no rebound, no guarding) - Derm Derm: Warm and dry - Neuro Neuro: Normal speech Results - Vitals Vitals: Vital Signs - 24 hr 09/29/22 09/29/22 09/29/22 12:33 14:04 18:04 Temperature 36.5 C Heart Rate 84 91 67 Respiratory 16 15 15 Rate Blood Pressure 155/79 H 147/75 H 114/78 O2 Saturation 95 96 99 Oxygen O2 Source Room air - Labs Labs: Microbiology 09/29/22 13:38 Occult Blood - Final Stool Laboratory Tests 09/29/22 09/29/22 09/29/22 12:54 12:54 13:57 WBC 11.3 H RBC 5.09 Hgb 14.3 Hct 44.9 MCV 88.2 MCH 28.1 MCHC 31.8 L RDW 13.3 Plt Count 189 MPV 9.0 Neut # (Auto) 9.0 H Lymph # (Auto) 1.4 L M[place]och # (Auto) 0.7 Eos # (Auto) 0.1 Baso # (Auto) 0.0 Absolute Nucleated RBC 0.00 Nucleated RBC % 0.0 PT INR Sodium 139 Potassium 4.2 Chloride 105 Carbon Dioxide 31 Anion Gap 3.0 L BUN 14 Creatinine 0.8 Estimated GFR (MDRD) 70 L Glucose 104 Calcium 9.7 Total Bilirubin 0.6 AST 15 ALT 17 Alkaline Phosphatase 95 Total Protein 6.6 Albumin 4.0 Globulin 2.6 Albumin/Globulin Ratio 1.5 Lipase 12 Blood Type A POSITIVE 09/29/22 09/29/22 13:57 16:01 WBC RBC Hgb 13.8 Hct 43.0 MCV MCH MCHC RDW Plt Count MPV Neut # (Auto) Lymph # (Auto) [place] # (Auto) Eos # (Auto) Baso # (Auto) Absolute Nucleated RBC Nucleated RBC % PT 12.4 INR 1.1 Sodium Potassium Chloride Carbon Dioxide Anion Gap BUN Creatinine Estimated GFR (MDRD) Glucose Calcium Total Bilirubin AST ALT Alkaline Phosphatase Total Protein Albumin Globulin Albumin/Globulin Ratio Lipase Blood Type PD Medical Decision Making - ED course Complexity details: reviewed results, re-evaluated patient, d/w patient ED course: Pt presenting for lower abdominal pain and blood in stools. Has has prior colonoscopies. VSS. Mild abdominal tenderness. CBC and chemistries without significant findings. CTA obtained to evaluate for source of bleed which I reviewed. Demonstrates diverticulitis. Repeat H/H relatively unchanged and pt feeling well. Pt to be started on augmentin and advised on need for follow up with PCP. Advised on concerning symptoms to return for. 1607 - No further bowel movement since my prior evaluation. Patient is just returned from [place]. precision optics technician is present to obtain a repeat H&H. Patient is aware that CT results are still pending. Departure - Departure Disposition: 01 Home, Self Care Clinical Impression: Diverticulitis, Blood in stool Condition: Stable Instructions: ED Diverticulitis Follow-Up: MAYA BROWN MD [Primary Care Provider] - Prescriptions: Amox/Clav 875/125 [Augmentin] 1 each PO Q12H #20 tablet Comments: Your CT scan shows diverticulitis which is likely the source of the bleeding in your stools. We have rechecked your hemoglobin and there does not appear to be a significant drop over the past several hours. I have sent a prescription for an antibiotic to [facility] in [place]. Please make sure to complete the course of the antibiotic. I would also recommend close follow-up with your primary care provider. Return to the ER if you develop any worsening symptoms such as fever, worsening pain, vomiting, feeling lightheaded or weak. Forms: PCP List Discharge Date/Time: 09/29/22 18:05
[2022-09-29 16:06] LABS: HGB - HEMOGLOBIN 13.8 g/dL (12.0-16.0)
[2022-09-29] MEDS ORDERED: iohexoL-300 100 ML VIAL IVP ONE (16:13)
[2022-09-29] MEDS ORDERED: SODIUM CHLORIDE 0.9% 500 ML IV STA (16:21)
--- NOTE | 2022-09-29 17:40 | CT Report ---
PROCEDURE: ANGIO ABDOMEN/PELVIS W INDICATIONS: GI bleed/lower abd pain CONTRAST: 100ml Omni 300 TECHNIQUE: After the administration of intravenous contrast, 2.5 mm thick sections acquired from the diaphragm t o the symphysis. 10 mm maximum-intensity projection (MIP) reformats were then acquired. For radiati on dose reduction, the following was used: automated exposure control, adjustment of mA and/or kV ac cording to patient size. COMPARISON: CTA of the chest 10/01/2020 FINDINGS: Image quality: Excellent. Aorta: Normal caliber aorta. No evidence of dissection or aneurysm.] Next calcified and noncalcified atherosclerosis. Mesenteric arteries: Focal calcification at the celiac axis origin with probable moderate stenosis. B ranch arteries are patent. Superior mesenteric artery origin is patent with mild calcification at the origin. Replaced right hepatic artery. SMA branches are patent to the mesentery. Inferior mesenteric artery is patent. Single renal arteries bilaterally are patent without significant calcification at their origins. Right pelvic arteries: Patent and normal caliber. Left pelvic arteries: Patent and normal caliber. Extravascular soft tissues: Lung bases are clear. Partially imaged bilateral breast implants. Heart size is normal. Liver and spleen are normal in size and enhancement. Gallbladder is normal.. Bilia ry system is non dilated. Pancreas enhances normally. No adrenal nodules. Kidneys are normal in si ze and enhancement, without hydronephrosis. There is probably ingested material in the cecum. Material is too dense to be hemorrhage or contrast. There are mild inflammatory changes around the distal descending and proximal sigmoid colon where th ere are a few impacted diverticula present. The descending colon is fairly decompressed. Stomach and small bowel are normal. No free fluid or air. No retroperitoneal or mesenteric adenopathy. Surgically absent uterus. No aleena tral hernias. No suspicious bony lesions. Healing bilateral lower rib fractures. Severe, chronic T 1 2 compression fracture. IMPRESSION: 1. No CT evidence of acute enteric hemorrhage. 2. Pericolonic inflammatory changes of early, mild, or resolving descending and sigmoid colon diverti culitis. No extraluminal gas or associated fluid. 3. Scattered atherosclerotic aortic calcification and possible stenosis at the celiac artery origin. If this would be clinically relevant, mesenteric duplex ultrasound may be useful. Reviewed by: Maria Dolores Mckeon MD on 09/29/2022 5:39 PM PDT Approved by: Maria Dolores Mckeon MD on 09/29/2022 5:39 PM PDT Station ID: [id number]
[2022-09-29] MEDS ORDERED: AMOX/CLAV 875 MG/125 MG TABLET PO STA (17:46)
[2022-09-29 18:06] VITALS: BP 114/78; O2SAT 99
== END 2022-09-29 18:05 | disposition home or self-care (01) ==
LOC: ED 12:21
DX: K57.33 Diverticulitis of large intestine without perforation or abscess with bleeding (principal)
CPT/HCPCS: 36415; 74174; 80053; 82272; 83690; 85014; 85018; 85025; 85610; 86900; 86901; 99284; A9270; Q9967

== ENCOUNTER 2022-12-16 08:00 | Outpatient (CLI) | payer MEDICARE ==
--- NOTE | 2022-12-16 20:21 | XRAY Report ---
PROCEDURE: Chest 2 View X-Ray INDICATIONS: ACUTE BRONCHITIS TECHNIQUE: 2 views of the chest were acquired. COMPARISON: Chest radiograph on September 08, 2022. FINDINGS: Surgical changes and devices: None. Lungs and pleura: Left lower lobe patchy consolidation. Bilateral perihilar bronchial wall thickenin g. No pleural effusion or pneumothorax. Mediastinum: Mediastinal contours appear normal. Heart size is normal. Aortic arch is calcified, indicating sclerosis. Bones and chest wall: No suspicious bony lesions. Overlying soft tissues appear unremarkable. Calci fication of the abdominal aorta. IMPRESSION: 1.Left lower lobe patchy consolidation which may represent atelectasis, aspiration and/or pneumonia, in the appropriate clinical context. 2.Bilateral perihilar bronchial wall thickening suggestive of viral pneumonia and/or reactive airways disease. Reviewed by: Gwendolyn Taylor MD on 12/16/2022 8:20 PM PST Approved by: Gwendolyn Taylor MD on 12/16/2022 8:20 PM PST Station ID: [id number]
== END 2022-12-16 23:59 | disposition home or self-care (01) ==
LOC: DI.S 08:00
PROVIDERS: ATTEND Physician Assistant
DX: J20.9 Acute bronchitis, unspecified (principal)

== ENCOUNTER 2023-01-05 13:48 | Outpatient (CLI) | payer MEDICARE ==
--- NOTE | 2023-01-05 15:24 | XRAY Report ---
PROCEDURE: Chest 2 View X-Ray INDICATIONS: RIGHT SIDED RIB PAIN TECHNIQUE: 2 views of the chest were acquired. COMPARISON: None. FINDINGS: Surgical changes and devices: None. Lungs and pleura: No pleural effusions or pneumothorax. Lungs are clear. Mediastinum: Mediastinal contours appear normal. Heart size is normal. Bones and chest wall: No suspicious bony lesions. Overlying soft tissues appear unremarkable. IMPRESSION: No acute cardiopulmonary process. No displaced fracture. Reviewed by: Alhaji Rollins on 01/05/2023 3:23 PM [facility] Approved by: Alhaji Rollins on 01/05/2023 3:23 PM [facility] Station ID: [id number]
== END 2023-01-05 23:59 | disposition home or self-care (01) ==
LOC: DI.S 13:48
PROVIDERS: ATTEND Nurse Practitioner
DX: R07.81 Pleurodynia (principal); N39.0 Urinary tract infection, site not specified
CPT/HCPCS: 87086; 87181

== ENCOUNTER 2023-09-29 07:00 | Outpatient (CLI) | payer MEDICARE ==
--- NOTE | 2023-09-29 17:09 | XRAY Report ---
PROCEDURE: Chest 2V INDICATIONS: DYSPNEA ON EXERTION TECHNIQUE: 2 views of the chest were acquired. COMPARISON: CXR 01/05/2023. CT abdomen and pelvis 09/29/2022. FINDINGS: Surgical changes and devices: None. Lungs and pleura: No pleural effusions or pneumothorax. Lungs are clear. Mediastinum: Mediastinal contours appear normal. Heart size is normal. Bones and chest wall: No suspicious bony lesions. Prior thoracolumbar compression fractures. Overlyi ng soft tissues appear unremarkable. IMPRESSION: No acute cardiopulmonary process identified. Reviewed by: Jhon Clements MD on 09/29/2023 5:03 PM PDT Approved by: Jhon Clements MD on 09/29/2023 5:03 PM PDT Station ID: [id number]
== END 2023-09-29 23:59 | disposition home or self-care (01) ==
LOC: DI.S 07:00
PROVIDERS: ATTEND Registered Nurse
DX: R06.09 Other forms of dyspnea (principal); R05.1 Acute cough